=== PATIENT | male | born 1980 | race Two or more races ===

== ENCOUNTER 2016-10-26 07:57 | Emergency (ER) | payer SELFPAY ==
[~2016-10-26] VITALS: Ht 180.3 cm; Wt 75.0 kg
[2016-10-26 08:02] VITALS: BP 153/93
== END 2016-10-26 10:19 | disposition left against medical advice (07) ==
LOC: ER 10:15
DX: Z53.21 Procedure and treatment not carried out due to patient leaving prior to being seen by health care provider (principal)